=== PATIENT | female | born 1985 | race Two or more races ===

== ENCOUNTER 2024-01-10 14:45 | Emergency (ER) | payer MEDICAID ==
[~2024-01-10] VITALS: Ht 157.5 cm; Wt 73.8 kg
[2024-01-10] MEDS ORDERED: ACET-1304 PO (16:25)
[2024-01-10] MEDS ORDERED: CEPH500C PO (16:25)
[2024-01-10] MEDS: cefTRIAXone SOD 1,000 MG VL IM ONE (16:33)
[2024-01-10] MEDS: ACETAMINOPHEN 500 MG TAB PO ONE (16:35)
[2024-01-10 16:48] VITALS: BP 121/83; PULSE 108; RESP 20; TEMP 97.8; O2SAT 99
== END 2024-01-10 16:51 | disposition home or self-care (01) ==
LOC: ER 14:45
DX: O23.41 Unspecified infection of urinary tract in pregnancy, first trimester (principal); N39.0 Urinary tract infection, site not specified; J03.90 Acute tonsillitis, unspecified; Z3A.10 10 weeks gestation of pregnancy
CPT/HCPCS: 81002; 81025; 96372; 99283; J0696

== ENCOUNTER 2024-06-30 14:48 | Observation (INO) | payer MEDICAID ==
[~2024-06-30 14:48] MED LIST: ACET-1304 PO; CEPH500C PO
[2024-06-30] MEDS ORDERED: PREN-96 PO (15:34)
[2024-06-30] MEDS ORDERED: FAMO20TA10 PO (15:35)
== END 2024-06-30 16:34 | disposition home or self-care (01) ==
LOC: LDRP 14:48
PROVIDERS: ADMIT Obstetrics & Gynecology; ATTEND Obstetrics & Gynecology
DX: O24.419 Gestational diabetes mellitus in pregnancy, unspecified control (principal); Z3A.32 32 weeks gestation of pregnancy
CPT/HCPCS: 59025; 76818; 81002; 82948; 82962; 94760; G0378

== ENCOUNTER 2024-07-08 08:43 | Observation (INO) | payer MEDICAID ==
[~2024-07-08 08:43] MED LIST changes: +PREN-96 PO
== END 2024-07-08 09:45 | disposition home or self-care (01) ==
LOC: LDRP 08:43 → UNDOADMOB 08:43 → LDRP 08:49 → UNDODISOB 09:45
PROVIDERS: ADMIT Obstetrics & Gynecology; ATTEND Obstetrics & Gynecology
DX: O24.419 Gestational diabetes mellitus in pregnancy, unspecified control (principal); Z3A.33 33 weeks gestation of pregnancy
CPT/HCPCS: 59025; 76818; 81002; 82948; 82962; 94760; G0378

== ENCOUNTER 2024-07-15 08:50 | Observation (INO) | payer MEDICAID | END 2024-07-15 10:15 | disposition home or self-care (01) | LOC: LDRP 08:50 | PROVIDERS: ADMIT Obstetrics & Gynecology; ATTEND Obstetrics & Gynecology | DX: O24.410 Gestational diabetes mellitus in pregnancy, diet controlled (principal); Z3A.34 34 weeks gestation of pregnancy; Z79.899 Other long term (current) drug therapy | CPT/HCPCS: 59025; 76818; 81002; 82948; 82962; 94760; G0378 ==

== ENCOUNTER 2024-07-22 13:50 | Observation (INO) | payer MEDICAID ==
[~2024-07-22 13:50] MED LIST changes: -ACET-1304 PO; -CEPH500C PO
== END 2024-07-22 15:47 | disposition home or self-care (01) ==
LOC: UNDOADMOB 13:50 → LDRP 13:50 → UNDODISOB 15:47
PROVIDERS: ADMIT Obstetrics & Gynecology; ATTEND Obstetrics & Gynecology
DX: O24.419 Gestational diabetes mellitus in pregnancy, unspecified control (principal); O09.523 Supervision of elderly multigravida, third trimester; Z3A.35 35 weeks gestation of pregnancy; Z98.890 Other specified postprocedural states; Z79.899 Other long term (current) drug therapy
CPT/HCPCS: 59025; 76818; 81002; 82948; 82962; 94760; G0378

== ENCOUNTER 2024-07-29 09:25 | Observation (INO) | payer MEDICAID ==
[2024-07-29] MEDS ORDERED: GLYB2.5T9 PO (10:03)
== END 2024-07-29 11:43 | disposition home or self-care (01) ==
LOC: LDRP 09:25 → UNDOADMOB 09:25 → LDRP 09:40
PROVIDERS: ADMIT Obstetrics & Gynecology; ATTEND Obstetrics & Gynecology
DX: O24.419 Gestational diabetes mellitus in pregnancy, unspecified control (principal); Z3A.36 36 weeks gestation of pregnancy
CPT/HCPCS: 59025; 76818; 81002; 82948; 82962; G0378

== ENCOUNTER 2024-07-31 17:02 | Observation (INO) | payer MEDICAID ==
[~2024-07-31 17:02] MED LIST changes: +GLYB2.5T9 PO
== END 2024-07-31 18:26 | disposition home or self-care (01) ==
LOC: LDRP 17:02
PROVIDERS: ADMIT Obstetrics & Gynecology; ATTEND Obstetrics & Gynecology
DX: O24.419 Gestational diabetes mellitus in pregnancy, unspecified control (principal); Z3A.36 36 weeks gestation of pregnancy
CPT/HCPCS: 59025; 76818; 81002; 82948; 82962; 94760; G0378

== ENCOUNTER 2024-08-03 04:23 | Observation (INO) | payer MEDICAID | END 2024-08-03 12:23 | disposition home or self-care (01) | LOC: LDRP 10:58 | PROVIDERS: ADMIT Obstetrics & Gynecology; ATTEND Obstetrics & Gynecology | DX: O24.419 Gestational diabetes mellitus in pregnancy, unspecified control (principal); Z3A.37 37 weeks gestation of pregnancy | CPT/HCPCS: 59025; 76818; 81002; 82948; 82962; 94760; G0378 ==

== ENCOUNTER 2024-08-07 08:57 | Observation (INO) | payer MEDICAID | END 2024-08-07 10:45 | disposition home or self-care (01) | LOC: LDRP 08:57 | PROVIDERS: ADMIT Obstetrics & Gynecology; ATTEND Obstetrics & Gynecology | DX: O24.419 Gestational diabetes mellitus in pregnancy, unspecified control (principal); Z3A.37 37 weeks gestation of pregnancy | CPT/HCPCS: 59025; 76818; 81002; 82948; 94760; G0378 ==

== ENCOUNTER 2024-08-11 09:00 | Inpatient (IN) | payer MEDICAID ==
[~2024-08-11] VITALS: Ht 154.9 cm; Wt 77.6 kg
[2024-08-11] MEDS ORDERED: LIDOCAINE 2%HCL (LOCAL ANESTH.) INJ 20ML MDV IJ PRN (09:30)
[2024-08-11] MEDS ORDERED: BUTORPHANOL TARTRATE 2 MG/1 ML VIAL IV PRN ×2 (09:30)
[2024-08-11 10:10] LABS: Basophils # (auto) 0 10 ^3/uL (0-0.2); Basophils % (auto) 0.3 % (0.0-2.0); Eosinophils # (auto) 0 10 ^3/uL (0-0.8); Eosinophils % (auto) 0.2 % (0.0-7.0); Hematocrit 41.4 % (36.0-46.0); Hemoglobin 14.6 g/dL (12.2-16.2); Lymphocytes % (auto) 21.6 % (10.0-50.0); Mean Corpuscular Hemoglobin 30.6 pg (28.0-32.0); Mean Corpuscular Hgb Conc. 35.4 g/dL (32.0-36.0); Mean Corpuscular Volume 86.6 fL (80.0-100.0); Monocytes # (auto) 0.5 10 ^3/uL (0-1.3); Neutrophils # (auto) 6.6 10 ^3/uL (1.6-8.6); Neutrophils % (auto) 72.9 % (37.0-80.0); Nucleated Red Blood Cells % 0.1 %; Platelet Count (auto) 259 10^3/uL (140-450); Red Blood Cells 4.78 10^6/uL (4.0-5.20); Red Cell Distribution Width 14.2 % (11.8-14.3)
[2024-08-11] MEDS: LIDOCAINE 2%HCL (LOCAL ANESTH.) INJ 20ML MDV ONE (10:11)
[2024-08-11] MEDS: LACT. RINGERS/OXYTOCIN 20UNITS 1,000 ML IV ONE (10:12)
[2024-08-11 10:29] LABS: Alanine Aminotransferase 15 U/L (7-40); Albumin 3.9 g/dL (3.2-4.8); Alkaline Phosphatase 164 U/L (46-116); Anion Gap 9 (5-15); Aspartate Aminotransferase 16 U/L (13-40); BUN/Creatinine Ratio 11.3 (10.0-20.0); Bilirubin, Total 0.5 mg/dL (0.2-1.0); Blood Urea Nitrogen 6 mg/dL (9-23); Calcium 9.1 mg/dL (8.7-10.4); Carbon Dioxide 22 mmol/L (20-30); Chloride 105 mmol/L (98-107); Glucose 95 mg/dL (74-106); Potassium 3.5 mmol/L (3.5-5.1); Sodium 136 mmol/L (136-145); Total Protein 6.7 g/dL (5.7-8.2)
[2024-08-11] MEDS: LACTATED RINGER'S 1,000 ML IV SCH (10:40)
[2024-08-11 11:13] LABS: INR 0.97 (0.9-1.15); Prothrombin Time 10.3 sec (9.3-11.8)
[2024-08-11] MEDS ORDERED: ONDANSETRON ODT 4 MG TAB PO PRN (14:15)
[2024-08-11] MEDS ORDERED: ACETAMINOPHEN 325 MG TAB PO PRN (14:15)
[2024-08-11 15:25] VITALS: BP 104/61; PULSE 90; RESP 18; TEMP 98.2; O2SAT 95
[2024-08-11] MEDS: WITCH HAZEL-GLYCERIN PAD TOP PRN (15:50)
[2024-08-11] MEDS: PHISODERM TOP SOLN 240ML BTL TOP PRN (15:50)
[2024-08-11] MEDS: DERMOPLAST 60ML BOTTLE TOP PRN (15:50)
[2024-08-11] MEDS: IBUPROFEN 600 MG TAB PO PRN (16:02)
[2024-08-11] MEDS: LACT. RINGERS/OXYTOCIN 20UNITS 500 ML IV ONE ×2 (16:13)
[2024-08-11 18:11] LABS: Amphetamine Screen, Urine Neg (NEGATIVE); Barbiturate Scree,Urine Neg (NEGATIVE)
[2024-08-11 18:12] LABS: Benzodiazephine Screen, Urine Neg (NEGATIVE); Cannabinoid Screen, Urine Neg (NEGATIVE); Cocaine Screen, Urine Neg (NEGATIVE); Opiate Scree,Urine Neg (NEGATIVE); Phencyclidine Screen, Urine Neg (NEGATIVE)
[2024-08-11 18:35] LABS: Urine Bacteria FEW /hpf (None Seen); Urine Blood 3+ /uL (Negative); Urine Clarity Clear (Clear); Urine Color Light-Brown (Yellow); Urine Protein, UAD TRACE (Negative); Urine Specific Gravity 1.004 (1.001-1.035); Urine Urobilinogen Normal (Negative); Urine WBC 7 /hpf (0 - 5); Urine pH 7.5 (5.0-9.0)
[2024-08-11 19:00] VITALS: BP 113/74; PULSE 86; RESP 18; TEMP 97.7; O2SAT 96
[2024-08-11] MEDS ORDERED: IBU600T PO (20:05)
[2024-08-11 23:30] VITALS: BP 102/67; PULSE 85; RESP 16; TEMP 97.8; O2SAT 95
[2024-08-12 03:00] VITALS: BP 105/56; PULSE 82; RESP 18; TEMP 97.8; O2SAT 96
[2024-08-12 07:10] VITALS: BP 108/67; PULSE 90; RESP 18; TEMP 97.4; O2SAT 96
[2024-08-12 09:06] LABS: RPR Non Reactive (Non Reactive)
[2024-08-12 11:09] LABS: Basophils # (auto) 0 10 ^3/uL (0-0.2); Basophils % (auto) 0.3 % (0.0-2.0); Eosinophils # (auto) 0 10 ^3/uL (0-0.8); Eosinophils % (auto) 0.1 % (0.0-7.0); Hematocrit 38.4 % (36.0-46.0); Hemoglobin 13.4 g/dL (12.2-16.2); Lymphocytes # (auto) 2.1 10 ^3/uL (0.4-5.4); Lymphocytes % (auto) 21.1 % (10.0-50.0); Mean Corpuscular Hemoglobin 30.5 pg (28.0-32.0); Mean Corpuscular Hgb Conc. 34.9 g/dL (32.0-36.0); Mean Corpuscular Volume 87.4 fL (80.0-100.0); Monocytes # (auto) 0.4 10 ^3/uL (0-1.3); Monocytes % (auto) 4.4 % (0.0-12.0); Neutrophils # (auto) 7.4 10 ^3/uL (1.6-8.6); Neutrophils % (auto) 74.1 % (37.0-80.0); Platelet Count (auto) 227 10^3/uL (140-450); Red Cell Distribution Width 14.5 % (11.8-14.3)
[2024-08-12 11:30] VITALS: BP 112/69; PULSE 93; RESP 20; TEMP 98.5; O2SAT 95
[2024-08-12] MEDS: MEASLES, MUMPS & RUBELLA VAC(MMRII) 0.5ML SC ONE (12:04)
== END 2024-08-12 13:48 | disposition home or self-care (01) | DRG 560 ==
LOC: LDRP 09:00 → OBSVTOIN 09:10 → LDRP 09:15
PROVIDERS: ADMIT Obstetrics & Gynecology; ATTEND Obstetrics & Gynecology
PROC: 10E0XZZ Delivery of Products of Conception, External Approach (ICD-10-PCS; principal; 2024-08-11)
DX: O24.429 Gestational diabetes mellitus in childbirth, unspecified control (principal); Z37.0 Single live birth; O71.82 Other specified trauma to perineum and vulva; Z3A.38 38 weeks gestation of pregnancy
CPT/HCPCS: 36415; 59025; 59409; 80053; 80307; 81001; 81002; 85025; 85610; 85730; 86592; 86780; 86803; 86850; 86900; 86901; 94760; 96360; 96361; G0378; J2590

== ENCOUNTER → 2024-11-27 | Day surgery (SDC) | payer MEDICAID ==
[2024-11-24 08:24] LABS: Urine Bacteria None Seen /hpf (None Seen)
[2024-11-24 08:32] LABS: Basophils # (auto) 0.1 10 ^3/uL (0-0.2); Basophils % (auto) 0.6 % (0.0-2.0); Eosinophils # (auto) 0 10 ^3/uL (0-0.8); Eosinophils % (auto) 0.6 % (0.0-7.0); Hematocrit 42.4 % (36.0-46.0); Hemoglobin 14.3 g/dL (12.2-16.2); Lymphocytes # (auto) 3.1 10 ^3/uL (0.4-5.4); Mean Corpuscular Hemoglobin 29.2 pg (28.0-32.0); Mean Corpuscular Hgb Conc. 33.7 g/dL (32.0-36.0); Mean Corpuscular Volume 86.7 fL (80.0-100.0); Monocytes # (auto) 0.3 10 ^3/uL (0-1.3); Monocytes % (auto) 3.2 % (0.0-12.0); Neutrophils # (auto) 5.1 10 ^3/uL (1.6-8.6); Neutrophils % (auto) 59.6 % (37.0-80.0); Platelet Count (auto) 395 10^3/uL (140-450); Red Blood Cells 4.89 10^6/uL (4.0-5.20); Red Cell Distribution Width 13.9 % (11.8-14.3); White Blood Cell 8.5 10^3/uL (4.4-10.8)
[2024-11-24 08:40] LABS: Urine Blood 2+ /uL (Negative); Urine Clarity Clear (Clear); Urine Color Light-Yellow (Yellow); Urine Hyaline Cast FEW /lpf (0 - 2); Urine Protein, UAD Negative (Negative); Urine Specific Gravity 1.015 (1.001-1.035); Urine Squamous Epithelial Cell FEW /hpf (<5); Urine Urobilinogen Normal (Negative); Urine WBC <1 /hpf (0 - 5); Urine pH 5.5 (5.0-9.0)
[2024-11-24 08:46] LABS: INR 1.07 (0.9-1.15); Partial Thromboplastin Time 28.4 SEC (24.5-34.5); Prothrombin Time 11.3 sec (9.3-11.8)
[2024-11-24 09:25] LABS: Alanine Aminotransferase 17 U/L (7-40); Albumin 4.6 g/dL (3.2-4.8); Alkaline Phosphatase 91 U/L (46-116); Anion Gap 8 (5-15); Aspartate Aminotransferase 14 U/L (13-40); BUN/Creatinine Ratio 18.1 (10.0-20.0); Bilirubin, Total 0.7 mg/dL (0.2-1.0); Blood Urea Nitrogen 13 mg/dL (9-23); Calcium 10.1 mg/dL (8.7-10.4); Carbon Dioxide 24 mmol/L (20-31); Glucose 95 mg/dL (74-106); Potassium 4.3 mmol/L (3.5-5.1); Sodium 141 mmol/L (136-145); Total Protein 7.6 g/dL (5.7-8.2)
[2024-11-24 09:40] LABS: Chloride 109 mmol/L (98-107)
--- NOTE | 2024-11-24 16:08 | DVHHP ---
ADMIT DATE: 11/27/2024 CHIEF COMPLAINT: Desires bilateral tubal ligation. HISTORY OF PRESENT ILLNESS: The patient is a 39-year-old 4, para 4, admitted for laparoscopic tubal sterilization. The patient does not want any other form of contraception. She denies having any abnormal bleeding or irregular menses. Risk, complication, indication discussed with the patient. The patient fully understands. Alternative to tubal sterilization discussed with the patient. Use of Filshie clip discussed with the patient. The patient wishes to proceed with planned procedure. PAST MEDICAL HISTORY: None. PAST SURGICAL HISTORY: Ankle surgery. SOCIAL HISTORY: None. FAMILY HISTORY: None. OBSTETRIC AND GYNECOLOGIC HISTORY: Four normal vaginal deliveries. REVIEW OF SYSTEMS: Consistent with HPI. PHYSICAL EXAMINATION: VITAL SIGNS: Stable, afebrile. HEENT: Within normal limits. CARDIOVASCULAR: Regular rate and rhythm. LUNGS: Clear to auscultation. BREASTS: Symmetrical. No masses. ABDOMEN: Soft. Nontender. PELVIC: External genitalia within normal limits. Vagina normal. Cervix grossly normal. Uterus 8-week size. Adnexa nonpalpable. EXTREMITIES: No clubbing, cyanosis, or edema. IMPRESSION: Multiparity, desires tubal sterilization. PLAN: Laparoscopic placement of Filshie clips. Informed consent obtained. Risks and complication of surgery including infection, bleeding, hematoma formation, injury to bowel, bladder, or surrounding organs, possibility of DVT, pulmonary embolism, risk of anesthesia discussed with the patient. Options reviewed. All questions answered. Failure rate with tubal sterilization discussed with the patient. Use of Filshie clip discussed with the patient. The patient fully understands. She wishes to proceed with planned procedure. DO FILEMON Peralta/FRANSISCO/LEONIE TID: [id number] RECEIPT: [id number]
[~2024-11-27] VITALS: Ht 157.5 cm; Wt 68.0 kg
[~2024-11-27] MED LIST changes: +BUPIVACAINE 0.5% P/F INJ 10 ML VIAL ONE; +DOXAPRAM HCL 20 MG/ML 20ML VIAL INJ IV ONE; +DexAMETHasone SOD PHOS 10MG/1ML VIAL INJ ONE; -GLYB2.5T9 PO; +HYDR-4072 PO; +HYDROmorphone HCL 2 MG/ML VL/or syr IV PRN; +IBUP-1456 PO; +KETAMINE 50mg/ML 1ml syringe ONE; +KETOROLAC TROMETH 30 MG/ML 1ML VIAL IV ONE; +LACTATED RINGER'S 1,000 ML IV SCH; +LIDOCAINE 1% INJ PF 5ML AMP ONE; +LIDOCAINE HCL 2% TOP JELLY 5ML TOP ONE; +LIDOCAINE W/ EPINEPHRINE 1% 20ML VIAL ONE; +MEPERIDINE HCL (25 MG/ML) 1ML VIAL ONE; +MIDAZOLAM HCL 2MG/2ML 2ml VIAL (1mg/ml) ONE; +MORPHINE SULFATE INJ 2 MG/ml SYRG IV PRN; +ONDANSETRON HCL 4 MG/2 ML VIAL IV PRN; +ONDANSETRON HCL 4 MG/2 ML VIAL ONE; -PREN-96 PO; +PROPOFOL 10 MG/ML 20 ML IV ONE; +ROCURONIUM 10MG/ML 10ML VIAL IV ONE; +SODIUM CHLORIDE LOCK 10 ML ONE; +SUCCINYLCHOLINE CHLORIDE 20 MG/ML 10ML VIAL IV ONE; +ZOFR4T PO; +ceFAZolin 2 GM/D5W100ml 100 ML IV ONE; +fentaNYL CITRATE 100 MCG/2 ML VL IV PRN; +fentaNYL CITRATE 100 MCG/2 ML VL ONE
--- NOTE | 2024-11-27 08:18 | DVHOP2 ---
Operative Report DATE OF OPERATION: 11/27/24 PREOPERATIVE DIAGNOSES: 1. Desires elective tubal sterilization. 2. morbid obesity POSTOPERATIVE DIAGNOSES: 1. Desires elective tubal sterilization. 2. morbid obesity SURGEON: Sugey Aleman D.O./shannan ANESTHESIOLOGIST: stephany TYPE OF ANESTHESIA : General. CONSENT: The patient was informed of the risks and benefits of the procedure. The patient was informed of the risks and benefits of the procedure. These in clude but are not limited to , complications of anesthesia, postoperative infection, incomplete relief of symptoms, recurrence of symptoms, damage to blood vessels, nerves and tendons, deep venous thrombosis, pulmonary embolism and possible need for repeat surgery in the future. FINDINGS: Cervix is grossly normal appearing. Uterus is 10 weeks' size. Adnexa nonpalpable. COMPLICATIONS: None. BLOOD PRODUCTS USED: None. PROCEDURES: Laparoscopic placement of Filschi Clips to bilateral tubes PROCEDURE IN DETAIL: The patient was taken to the operating room where she was placed under general anesthesia. The patient was then prepped and draped in the usual sterile manner in the dorsal lithotomy position. The bladder was emptied using a straight catheter. Examination under anesthesia revealed the above findings. A weighted speculum was placed in the vagina. The anterior lip of the cervix was grasped using single-tooth tenaculum. Cervix was dilated. Uterus sounded to 10 cm. HUMI catheter was placed. Attention was then turned to the abdomen where a Veress needle was introduced. Abdomen was distended with 3L of CO2 gas. Using Visiport, abdomen was entered under direct visualization. Survey of abdominal cavity revealed normal finding. A 8 mm trocar was placed into the suprapubic region. Filshie clip was then loaded on the right tube as well as the left. No bleeding was noted. All the instruments were removed from the abdomen and pelvis. CO2 gas released. Incisional ports were closed using #4-0 Vicryl and wilder for the larger port. The patient tolerated the procedure well. All instruments were removed from the patient's cervix. The patient was taken to the recovery room in a stable condition. ESTIMATED BLOOD LOSS: 20 mL SUGEY ALEMAN DO Nov 27, 2024 08:18
--- NOTE | 2024-11-27 08:22 | DVHDS2 ---
Physician Discharge Progress N Final Diagnosis: desires tubal ligation morbid obesity Operations or Procedures: Operations or Procedures laparosopic tubal ligation Condition on Discharge: Good Disposition: Home Discharge Instructions: Diet: Regular Activity: Light activity Follow Up/Referral: 1w Medications: arlette monet Follow Up Care: Specialist: 1w Discharge Statement: "Patient was advised to return to the ER or call 911 if any headaches, dizziness, shortness of breath, chest pain, abdominal pain, bleeding, fevers, or worsening of medical condition. Patient was counseled about treatment plan, medications, possible side effects, patientverbalized understanding. All questions were answered to the best of my ability. This discharge took greater then 30 minutes in planning, reviewing documentation, counseling the patient, and discussing with other team members." REINIER SHRESTHA DO Nov 27, 2024 08:22
--- NOTE | 2024-11-27 08:22 | POSTOP ---
Post-Operative Note Post-Operative Note Preop Diagnosis morbid obesity,desires tubal ligation Postop Diagnosis: desires tubal ligation morbid obesity Operation performed laparosopic tubal ligation Specimen na Anesthesia: General Anesthesiologist: stephany Blood Loss(fluid mgmt) 20ml Surgeon Sugey Aleman Cell Phone Repair Technician shannan Rodríguez filschie Complications & Mgmt none Date 11/27/24 Time 08:19 SUGEY ALEMAN DO Nov 27, 2024 08:22
[2024-11-27 08:26] VITALS: TEMP 97.9; O2SAT 96
[2024-11-27] MEDS: HYDROmorphone HCL 2 MG/ML VL/or syr IV PRN (08:52)
[2024-11-27] MEDS: METOCLOPRAMIDE HCL 5MG/ml INJ 2ml VIAL IV ONE (09:36)
[2024-11-27 09:44] VITALS: BP 116/73; PULSE 81; RESP 15; O2SAT 97
== END | disposition home or self-care (01) ==
LOC: SUR 06:18
PROVIDERS: ATTEND Obstetrics & Gynecology
DX: Z30.2 Encounter for sterilization (principal); E66.01 Morbid (severe) obesity due to excess calories; Z64.1 Problems related to multiparity
CPT/HCPCS: 36415; 58671; 80053; 81001; 81025; 85025; 85610; 85730; 86850; 86900; 86901; A4264; J0330; J1100; J1171; J2175; J2250; J2405; J2704; J2765; J3010; J3490